=== PATIENT | female | born 1970 | race Caucasian/White ===

== ENCOUNTER 2018-07-29 08:40 | Outpatient (CLI) | payer OTHER ==
[2018-07-29 08:52] LABS: BASOPHILS % 0.6 % (0.0-1.5); EOSINOPHILS % 3.5 % (0.0-6.8); MEAN CORPUSCULAR HEMOGLOBIN 29.7 pg (28.0-34.0); MONOCYTES % 5.6 % (0.0-11.0); NEUTROPHILS # 5.3 # k/uL (1.4-7.7)
[2018-07-29 09:06] LABS: eGFR (Non-African) > 60
== END 2018-07-29 08:42 ==
LOC: LABRHC 08:40
PROVIDERS: ATTEND Nurse Practitioner Family
DX: R94.6 Abnormal results of thyroid function studies (principal); E78.5 Hyperlipidemia, unspecified
CPT/HCPCS: 36415; 80053; 80061; 84439; 84443; 84481; 85025

== ENCOUNTER 2018-08-18 09:58 | Day surgery (SDC) | payer OTHER ==
[~2018-08-18 09:58] MED LIST: LACTATED RINGERS 1,000 ML IV.SOLN IV ONE; LIDOCAINE HCL 2% PF 100MG/5ML VIAL IJ ONE; PROPOFOL 200 MG/20 ML VIAL IV ONE
[2018-08-18] MEDS ORDERED: PREGNANCY TEST KIT 1 EACH KIT MC ONE (11:11)
--- NOTE | 2018-10-28 09:02 | GI Report ---
DATE OF PROCEDURE: 08/18/2018 REFERRING PHYSICIAN: Dr. Martinez. PROCEDURE PERFORMED: Endoscopy, esophageal dilatation and biopsies. SURGEON: Francoise Mendez M.D., F.[email or web address]. 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 Sometimes it will last for a minute or so, may have to regurgitate it back up. She does have some heartburn in the evening. It goes away if she takes omeprazole 20 mg. No abdominal surgeries. No blood in the stool or change in bowel habits. PROCEDURE MEDICATION: Propofol, as per Anesthesia. DESCRIPTION OF PROCEDURE: An Olympus video endoscope is passed through the esophagus under direct visualization. The patient has at least grade 2 esophagitis with a stricture at the GE junction and a small hiatal hernia. Fundus, body and antrum of stomach: The patient has a number of superficial ulcers in the antrum and erosions consistent with nonsteroidals. Duodenal bulb, first and second part of the duodenum exam was normal. The endoscope was removed. A guidewire was placed and up to a 17 mm (#51F) was passed over the guidewire without resistance. The endoscope was reintroduced. There was bleeding where the stricture was stretched. Biopsies were taken to the antrum for H. pylori. Biopsies of the stricture were taken and submitted to pathology. The patient tolerated the procedure well. FINDINGS: 1. Esophageal stricture, dilated to a #51F. 2. At least grade 2 esophagitis, biopsies pending. 3. Small hiatal hernia. 4. Antral erosions, superficial ulceration, biopsies pending. RECOMMENDATIONS: 1. Would keep her on a PPI daily before her first meal. 2. Consider an antacid of choice Gaviscon, etc. at bedtime. 3. Sleep with the head of the bed elevated 2 inches. 4. Do not eat late at night. FRANCOISE MENDEZ M.D., F.A.C.P. LUMA/gwen Job#: [id number] Cc: Dr. Martinez. CARMELA Mckeon [facility] HOSPITALSegundo
== END 2018-08-18 12:40 ==
LOC: OPSURG 09:58
PROVIDERS: ATTEND Internal Medicine Gastroenterology
DX: K30 Functional dyspepsia (principal); R13.10 Dysphagia, unspecified
CPT/HCPCS: 43235; J2001; J2704; J7120